=== PATIENT | female | born 1950 | race Caucasian/White ===

== ENCOUNTER 2019-08-21 17:41 | Observation (INO) ==
[2019-08-21] MEDS ORDERED: Isovue-370 500 ML BOTTLE IVP ONE (18:11)
[2019-08-21 18:57] LABS: Basophils # 0.1 K/mcL (0.0-0.2); Basophils % 0.7 %; Eosinophils # 0.2 K/mcL (0.0-0.6); Eosinophils % 1.8 %; Hemoglobin 14.5 g/dL (11.5-15.4); Immature Granulocytes % 0.4 % (0-4); Lymphocytes # 1.4 K/mcL (0.6-4.6); Lymphocytes % 17.3 %; Mean Corpuscular Hemoglobin 32.2 pg (28.0-33.3); Mean Corpuscular Volume 97.6 fL (83.0-100.0); Mean Platelet Volume 10.7 fL (9.4-12.4); Monocytes # 1.1 K/mcL (0.0-1.3); Monocytes % 12.9 %; Neutrophils # 5.5 K/mcL (1.6-8.9); Platelet Count 218 K/mcL (140-400); Red Blood Count 4.51 M/mcL (3.82-4.97); Red Cell Distribution Width 12.8 % (11.5-14.5); Segmented Neutrophils % 66.9 %; White Blood Count 8.3 K/mcL (4.3-11.1)
[2019-08-21 19:10] LABS: Bacteria,Urine Few per hpf (None-Few); Bilirubin,Urine Negative (Negative); Blood,Urine Negative (Negative); Clarity,Urine Turbid (Clear); Color,Urine Yellow (Yellow); Glucose,Urine (UA) 70 mg/dL (Normal); Hyaline Casts,Urine Many per lpf (None Seen); Ketones,Urine 10 mg/dL (Negative); Leukocyte Esterase,Urine Moderate (Negative); Mucus,Urine Many per lpf (None-Few); Nitrite,Urine Negative (Negative); Protein,Urine 100 mg/dL (Neg-Trace); Specific Gravity,Urine > 1.030 (1.010-1.025); Squamous Epithelial Cell,Urine Moderate per hpf (None-Few)
[2019-08-21 19:17] LABS: Alanine Aminotransferase 32 Units/L (7-52); Albumin 4.3 g/dL (3.5-5.7); Albumin/Globulin Ratio 1.4 (1.1-2.2); Alkaline Phosphatase 52 Units/L (34-104); Aspartate Amino Transferase 19 Units/L (13-39); BUN/Creatinine Ratio 25 (6-26); Bilirubin,Direct 0.3 mg/dL (0.0-0.2); Bilirubin,Indirect 0.8 mg/dL (0.0-1.0); Bilirubin,Total 1.1 mg/dL (0.3-1.0); Blood Urea Nitrogen 17 mg/dL (8-23); Calcium 9.8 mg/dL (8.6-10.3); Carbon Dioxide 26 mEq/L (23-29); Chloride 99 mEq/L (98-107); Glucose 231 mg/dL (70-105); Lipase 8 Units/L (11-82); Osmolality,Calculated 287 (280-300); Potassium 3.9 mEq/L (3.5-5.1); Sodium 134 mEq/L (136-145); Total Protein 7.3 g/dL (6.4-8.9); eGFR For African Americans > 60 (> 60); eGFR For Non-African Americans > 60 (> 60)
[2019-08-21] MEDS ORDERED: cefTRIAXone 1,000 MG in Water for inj. (sterile) 10 ML IVP ONE (20:59)
[2019-08-21] MEDS ORDERED: Insulin DETEMIR 100 UNIT/ML X5UNITS SQ SCH (21:00)
[2019-08-21] MEDS ORDERED: Naloxone 0.4 MG/ML INJ IVP PRN (22:22)
[2019-08-21] MEDS ORDERED: Ondansetron 4 MG/2 ML VIAL IVP PRN (22:22)
[2019-08-21] MEDS: 0.9 % Sodium Chloride 1,000 ML IVC SCH (22:34)
[2019-08-21] MEDS ORDERED: *HR* Dextrose 50 % in Water (Vial) 50 ML VIAL IVP PRN (22:50)
[2019-08-21] MEDS ORDERED: D5% in Water 1,000 ML IVC PRN (22:50)
[2019-08-21] MEDS ORDERED: Dextrose Gel 15 GM/37.5 ML TUBE PO PRN ×2 (22:50)
[2019-08-21] MEDS: Morphine Sulfate 2 MG/ML SYRINGE IVP PRN (23:02)
[2019-08-21] MEDS: traZODone 50 MG TABLET PO SCH (23:06)
[2019-08-22] MEDS: Morphine Sulfate 2 MG/ML SYRINGE IVP PRN ×2 (03:28→09:35)
[2019-08-22] MEDS: *HR* Heparin 5,000 UNIT/ML VIAL SQ SCH ×3 (05:02→19:41)
[2019-08-22 05:05] LABS: BUN/Creatinine Ratio 28 (6-26); Blood Urea Nitrogen 16 mg/dL (8-23); Calcium 8.9 mg/dL (8.6-10.3); Carbon Dioxide 26 mEq/L (23-29); Chloride 101 mEq/L (98-107); Chol/HDL Ratio 3.2 (0-4.9); Cholesterol 103 mg/dL (< 200); Glucose 193 mg/dL (70-105); HDL Cholesterol 32 mg/dL (40-59); LDL Cholesterol,Calculated 48 mg/dL (< 100); Magnesium 1.5 mg/dL (1.6-2.6); Osmolality,Calculated 284 (280-300); Phosphorous 3.4 mg/dL (2.7-4.5); Potassium 3.7 mEq/L (3.5-5.1); Sodium 134 mEq/L (136-145); Triglycerides 114 mg/dL (< 150); eGFR For African Americans > 60 (> 60); eGFR For Non-African Americans > 60 (> 60)
[2019-08-22 05:25] LABS: INR 1.2; Prothrombin Time 13.6 Seconds (9.4-12.1)
[2019-08-22] MEDS ORDERED: *HR* LORazepam 2 MG/ML VIAL IVP ONE (07:54)
[2019-08-22] MEDS: Insulin LISPRO 300 UNITS/3 ML VIAL SQ SCH ×3 (08:10→16:46)
[2019-08-22] MEDS: BuPROPion XL (24 HR) 150 MG TABLET PO SCH (08:10)
[2019-08-22] MEDS ORDERED: cefTRIAXone 1,000 MG in 0.9 % Sodium Chloride Mini Bag 100 ML IVPB SCH (09:00)
[2019-08-22] MEDS: 0.9 % Sodium Chloride 1,000 ML IVC SCH ×2 (09:28→19:39)
[2019-08-22] MEDS: lisinopriL 20 MG TABLET PO SCH (15:11)
[2019-08-22] MEDS: cefTRIAXone 1,000 MG in Water for inj. (sterile) 10 ML IVP SCH (19:39)
[2019-08-22] MEDS: Insulin DETEMIR 100 UNIT/ML X5UNITS SQ SCH (19:41)
[2019-08-22] MEDS: traZODone 50 MG TABLET PO SCH (19:41)
[2019-08-23 01:12] LABS: Hematocrit 38.9 % (35.3-44.9); Hemoglobin 12.8 g/dL (11.5-15.4); Mean Corpuscular HGB Conc 32.9 g/dL (31.6-35.5); Mean Corpuscular Hemoglobin 31.8 pg (28.0-33.3); Mean Corpuscular Volume 96.5 fL (83.0-100.0); Mean Platelet Volume 10.5 fL (9.4-12.4); Platelet Count 173 K/mcL (140-400); Red Blood Count 4.03 M/mcL (3.82-4.97); Red Cell Distribution Width 12.9 % (11.5-14.5); White Blood Count 5.3 K/mcL (4.3-11.1)
[2019-08-23 01:31] LABS: BUN/Creatinine Ratio 22 (6-26); Blood Urea Nitrogen 10 mg/dL (8-23); Calcium 8.2 mg/dL (8.6-10.3); Carbon Dioxide 26 mEq/L (23-29); Chloride 105 mEq/L (98-107); Glucose 112 mg/dL (70-105); Osmolality,Calculated 286 (280-300); Potassium 3.3 mEq/L (3.5-5.1); Sodium 138 mEq/L (136-145); eGFR For African Americans > 60 (> 60); eGFR For Non-African Americans > 60 (> 60)
[2019-08-23] MEDS: Morphine Sulfate 2 MG/ML SYRINGE IVP PRN (03:23)
[2019-08-23] MEDS: 0.9 % Sodium Chloride 1,000 ML IVC SCH ×3 (03:24→23:30)
[2019-08-23] MEDS: *HR* Heparin 5,000 UNIT/ML VIAL SQ SCH ×3 (05:15→21:55)
[2019-08-23] MEDS: Insulin LISPRO 300 UNITS/3 ML VIAL SQ SCH ×3 (07:35→17:10)
[2019-08-23] MEDS: BuPROPion XL (24 HR) 150 MG TABLET PO SCH (08:38)
[2019-08-23] MEDS: lisinopriL 20 MG TABLET PO SCH (08:38)
[2019-08-23] MEDS: traZODone 50 MG TABLET PO SCH (21:54)
[2019-08-23] MEDS: cefTRIAXone 1,000 MG in Water for inj. (sterile) 10 ML IVP SCH (21:54)
[2019-08-23] MEDS: Insulin DETEMIR 100 UNIT/ML X5UNITS SQ SCH (22:02)
[2019-08-24] MEDS: *HR* Heparin 5,000 UNIT/ML VIAL SQ SCH ×3 (05:55→20:34)
[2019-08-24 07:11] LABS: Hematocrit 38.8 % (35.3-44.9); Hemoglobin 12.6 g/dL (11.5-15.4); Mean Corpuscular HGB Conc 32.5 g/dL (31.6-35.5); Mean Corpuscular Volume 95.6 fL (83.0-100.0); Mean Platelet Volume 10.8 fL (9.4-12.4); Platelet Count 183 K/mcL (140-400); Red Blood Count 4.06 M/mcL (3.82-4.97); Red Cell Distribution Width 12.6 % (11.5-14.5); White Blood Count 5.8 K/mcL (4.3-11.1)
[2019-08-24 07:28] LABS: BUN/Creatinine Ratio 9 (6-26); Blood Urea Nitrogen 4 mg/dL (8-23); Calcium 8.1 mg/dL (8.6-10.3); Carbon Dioxide 25 mEq/L (23-29); Chloride 105 mEq/L (98-107); Glucose 131 mg/dL (70-105); Osmolality,Calculated 285 (280-300); Potassium 3.1 mEq/L (3.5-5.1); Sodium 138 mEq/L (136-145); eGFR For African Americans > 60 (> 60); eGFR For Non-African Americans > 60 (> 60)
[2019-08-24] MEDS: BuPROPion XL (24 HR) 150 MG TABLET PO SCH (07:50)
[2019-08-24] MEDS: lisinopriL 20 MG TABLET PO SCH (07:50)
[2019-08-24] MEDS: Insulin LISPRO 300 UNITS/3 ML VIAL SQ SCH ×3 (08:45→16:54)
[2019-08-24] MEDS: 0.9 % Sodium Chloride 1,000 ML IVC SCH (09:26)
[2019-08-24] MEDS: polyethylene glycoL 3350 17 GM POWD.PACK PO SCH (09:27)
[2019-08-24] MEDS: traZODone 50 MG TABLET PO SCH (20:34)
[2019-08-24] MEDS: cefTRIAXone 1,000 MG in Water for inj. (sterile) 10 ML IVP SCH (20:34)
[2019-08-24] MEDS: Insulin DETEMIR 100 UNIT/ML X5UNITS SQ SCH (20:34)
[2019-08-25] MEDS: *HR* Heparin 5,000 UNIT/ML VIAL SQ SCH (06:18)
[2019-08-25] MEDS: polyethylene glycoL 3350 17 GM POWD.PACK PO SCH (08:14)
[2019-08-25] MEDS: lisinopriL 20 MG TABLET PO SCH (08:14)
[2019-08-25] MEDS: BuPROPion XL (24 HR) 150 MG TABLET PO SCH (08:14)
[2019-08-25 08:16] LABS: Basophils # 0.1 K/mcL (0.0-0.2); Basophils % 1.3 %; Eosinophils # 0.2 K/mcL (0.0-0.6); Eosinophils % 2.7 %; Hematocrit 39.3 % (35.3-44.9); Hemoglobin 12.9 g/dL (11.5-15.4); Immature Granulocytes % 0.5 % (0-4); Lymphocytes # 1.6 K/mcL (0.6-4.6); Lymphocytes % 27.2 %; Mean Corpuscular HGB Conc 32.8 g/dL (31.6-35.5); Mean Corpuscular Hemoglobin 31.2 pg (28.0-33.3); Mean Corpuscular Volume 94.9 fL (83.0-100.0); Mean Platelet Volume 10.4 fL (9.4-12.4); Monocytes # 0.6 K/mcL (0.0-1.3); Monocytes % 9.5 %; Neutrophils # 3.5 K/mcL (1.6-8.9); Platelet Count 191 K/mcL (140-400); Red Blood Count 4.14 M/mcL (3.82-4.97); Red Cell Distribution Width 12.5 % (11.5-14.5); Segmented Neutrophils % 58.8 %
[2019-08-25] MEDS: Insulin LISPRO 300 UNITS/3 ML VIAL SQ SCH (08:18)
[2019-08-25 08:37] LABS: BUN/Creatinine Ratio 8 (6-26); Blood Urea Nitrogen 4 mg/dL (8-23); Calcium 8.7 mg/dL (8.6-10.3); Carbon Dioxide 28 mEq/L (23-29); Chloride 102 mEq/L (98-107); Glucose 132 mg/dL (70-105); Osmolality,Calculated 285 (280-300); Potassium 3.2 mEq/L (3.5-5.1); Sodium 138 mEq/L (136-145); eGFR For African Americans > 60 (> 60); eGFR For Non-African Americans > 60 (> 60)
[2019-08-25 10:11] LABS: Magnesium 1.6 mg/dL (1.6-2.6)
[2019-08-25 10:47] VITALS: BP 172/80
== END 2019-08-25 12:22 | disposition home or self-care (01) ==
LOC: EMEROOARM 17:41 → 3ANU 17:41 → SUATTDRO 21:18 → 3ANU 21:42
PROVIDERS: ADMIT Internal Medicine; ATTEND Student in an Organized Health Care Education/Training Program

== ENCOUNTER 2020-08-25 05:29 | Inpatient (IN) ==
[2020-08-25] MEDS ORDERED: Isovue-370 500 ML BOTTLE IVP ONE ×2 (06:01→06:02)
[2020-08-25] MEDS ORDERED: Ondansetron 4 MG/2 ML VIAL IVP ONE (06:02)
[2020-08-25] MEDS ORDERED: Morphine Sulfate 2 MG/ML SYRINGE IVP ONE ×2 (06:02→11:17)
[2020-08-25 06:33] LABS: Basophils % 0.5 %; Eosinophils # 0.1 K/mcL (0.0-0.6); Eosinophils % 1.3 %; Hematocrit 44.5 % (35.3-44.9); Hemoglobin 14.5 g/dL (11.5-15.4); Immature Granulocytes % 0.2 % (0-4); Lymphocytes # 0.9 K/mcL (0.6-4.6); Mean Corpuscular HGB Conc 32.6 g/dL (31.6-35.5); Mean Corpuscular Hemoglobin 31.5 pg (28.0-33.3); Mean Corpuscular Volume 96.5 fL (83.0-100.0); Monocytes % 13.8 %; Neutrophils # 4.3 K/mcL (1.6-8.9); Platelet Count 202 K/mcL (140-400); Red Blood Count 4.61 M/mcL (3.82-4.97); Red Cell Distribution Width 13.2 % (11.5-14.5); Segmented Neutrophils % 70.2 %; White Blood Count 6.1 K/mcL (4.3-11.1)
[2020-08-25 06:38] LABS: Monocytes # 0.8 K/mcL (0.0-1.3)
[2020-08-25 06:50] LABS: Alanine Aminotransferase 20 Units/L (7-52); Albumin 4.3 g/dL (3.5-5.7); Albumin/Globulin Ratio 1.3 (1.1-2.2); Alkaline Phosphatase 48 Units/L (34-104); Aspartate Amino Transferase 15 Units/L (13-39); BUN/Creatinine Ratio 42 (6-26); Bilirubin,Direct 0.2 mg/dL (0.0-0.2); Bilirubin,Indirect 1.2 mg/dL (0.0-1.0); Bilirubin,Total 1.4 mg/dL (0.3-1.0); Blood Urea Nitrogen 25 mg/dL (8-23); Calcium 8.9 mg/dL (8.6-10.3); Carbon Dioxide 25 mEq/L (23-29); Chloride 97 mEq/L (98-107); Globulin 3.2 g/dL (2.4-3.5); Glucose 286 mg/dL (70-105); Lipase 4 Units/L (11-82); Osmolality,Calculated 287 (280-300); Potassium 4.1 mEq/L (3.5-5.1); Sodium 131 mEq/L (136-145); Total Protein 7.5 g/dL (6.4-8.9); eGFR For African Americans > 60 (> 60); eGFR For Non-African Americans > 60 (> 60)
[2020-08-25 06:55] LABS: Bilirubin,Urine Negative (Negative); Blood,Urine Negative (Negative); Clarity,Urine Clear (Clear); Color,Urine Yellow (Yellow); Glucose,Urine (UA) 500 mg/dL (Normal); Ketones,Urine 40 mg/dL (Negative); Leukocyte Esterase,Urine Trace (Negative); Mucus,Urine Few per lpf (None-Few); Nitrite,Urine Negative (Negative); Protein,Urine 50 mg/dL (Neg-Trace); Specific Gravity,Urine > 1.030 (1.010-1.025); Squamous Epithelial Cell,Urine Few per hpf (None-Few); Urobilinogen,Urine Normal (Normal); WBC,Urine 0-3 per hpf (0-3)
[2020-08-25 07:17] LABS: Platelet Estimate Normal (Normal)
[2020-08-25] MEDS: 0.9 % Sodium Chloride 1,000 ML IVC SCH ×6 (10:41→19:52)
[2020-08-25] MEDS ORDERED: Naloxone 0.4 MG/ML INJ IVP PRN (10:47)
[2020-08-25] MEDS ORDERED: *HR* Dextrose 50 % in Water (Vial) 50 ML VIAL IVP PRN (11:08)
[2020-08-25] MEDS ORDERED: D5% in Water 1,000 ML IVC PRN (11:08)
[2020-08-25] MEDS ORDERED: Dextrose Gel 15 GM/37.5 ML TUBE PO PRN ×2 (11:08)
[2020-08-25] MEDS ORDERED: *HR* LORazepam 2 MG/ML VIAL IVP ONE (11:17)
[2020-08-25] MEDS ORDERED: Morphine Sulfate Oral CONC 10 MG/0.5 ML ORAL.SYG SL PRN (11:18)
[2020-08-25] MEDS: Insulin LISPRO 300 UNITS/3 ML VIAL SUBQ SCH ×2 (13:35→17:15)
[2020-08-25] MEDS ORDERED: Acetaminophen IV 500 MG/50 ML BAG IVPB ONE (21:00)
[2020-08-26] MEDS: Insulin LISPRO 300 UNITS/3 ML VIAL SUBQ SCH ×5 (00:44→22:38)
[2020-08-26] MEDS: 0.9 % Sodium Chloride 1,000 ML IVC SCH ×3 (04:39→08:33)
[2020-08-26 06:43] LABS: Hematocrit 39.4 % (35.3-44.9); Hemoglobin 13.1 g/dL (11.5-15.4); Mean Corpuscular HGB Conc 33.2 g/dL (31.6-35.5); Mean Corpuscular Hemoglobin 32.6 pg (28.0-33.3); Mean Platelet Volume 11.1 fL (9.4-12.4); Platelet Count 196 K/mcL (140-400); Red Blood Count 4.02 M/mcL (3.82-4.97); Red Cell Distribution Width 13.4 % (11.5-14.5); White Blood Count 7.7 K/mcL (4.3-11.1)
[2020-08-26] MEDS ORDERED: *HR* Propofol 200 MG/20 ML VIAL IVP ONE (07:08)
[2020-08-26] MEDS ORDERED: Ondansetron 4 MG/2 ML VIAL ONE (07:08)
[2020-08-26] MEDS ORDERED: *HR* Rocuronium Bromide 50 MG/5 ML VIAL ONE (07:08)
[2020-08-26] MEDS ORDERED: *HR* Succinylcholine 200 MG/10 ML VIAL IVP ONE (07:08)
[2020-08-26] MEDS ORDERED: Lidocaine -MPF 2% 2 ML VIAL ONE (07:08)
[2020-08-26] MEDS ORDERED: *HR* FentaNYL (PF) 100 MCG/2 ML VIAL ONE (07:08)
[2020-08-26 07:10] LABS: Alanine Aminotransferase 14 Units/L (7-52); Albumin 3.6 g/dL (3.5-5.7); Albumin/Globulin Ratio 1.4 (1.1-2.2); Alkaline Phosphatase 39 Units/L (34-104); Aspartate Amino Transferase 10 Units/L (13-39); BUN/Creatinine Ratio 26 (6-26); Bilirubin,Total 0.9 mg/dL (0.3-1.0); Blood Urea Nitrogen 14 mg/dL (8-23); Calcium 7.6 mg/dL (8.6-10.3); Carbon Dioxide 25 mEq/L (23-29); Chloride 104 mEq/L (98-107); Globulin 2.5 g/dL (2.4-3.5); Glucose 171 mg/dL (70-105); Magnesium 1.7 mg/dL (1.6-2.6); Osmolality,Calculated 287 (280-300); Phosphorous 1.7 mg/dL (2.7-4.5); Potassium 3.7 mEq/L (3.5-5.1); Sodium 136 mEq/L (136-145); Total Protein 6.1 g/dL (6.4-8.9); eGFR For African Americans > 60 (> 60); eGFR For Non-African Americans > 60 (> 60)
[2020-08-26] MEDS ORDERED: *HR* Magnesium Sulfate 1 GM/2 ML VIAL ONE (07:19)
[2020-08-26] MEDS ORDERED: *HR* Vasopressin 20 UNIT/ML VIAL ONE (07:27)
[2020-08-26] MEDS ORDERED: ROPIVACAINE/PF/NS 0.25% 1 EACH SYRINGE INTRAART ONE (07:45)
[2020-08-26] MEDS ORDERED: Ondansetron ODT 4 MG TAB.RAPDIS SL ONE (10:10)
[2020-08-26] MEDS ORDERED: Ondansetron ODT 4 MG TAB.RAPDIS SL PRN (10:48)
[2020-08-26] MEDS ORDERED: *HR* Heparin 5,000 UNIT/ML VIAL SQ SCH (11:45)
[2020-08-26] MEDS ORDERED: Potassium Phosphate 44 MEQ in 0.9 % Sodium Chloride 250 ML IVPB ONE (14:11)
[2020-08-26] MEDS ORDERED: Chloraseptic Spray 177 ML BOTTLE MM PRN (15:18)
[2020-08-26] MEDS ORDERED: 0.9 % Sodium Chloride 1,000 ML IVC SCH (17:00)
[2020-08-26] MEDS: *HR* Heparin 5,000 UNIT/ML VIAL SQ SCH (17:45)
[2020-08-26] MEDS: Melatonin 3 MG TABLET PO PRN (22:41)
[2020-08-27 03:06] LABS: Hematocrit 37.9 % (35.3-44.9); Mean Corpuscular HGB Conc 31.7 g/dL (31.6-35.5); Mean Corpuscular Hemoglobin 31.3 pg (28.0-33.3); Mean Corpuscular Volume 98.7 fL (83.0-100.0); Mean Platelet Volume 10.9 fL (9.4-12.4); Platelet Count 178 K/mcL (140-400); Red Blood Count 3.84 M/mcL (3.82-4.97); Red Cell Distribution Width 13.1 % (11.5-14.5); White Blood Count 8.4 K/mcL (4.3-11.1)
[2020-08-27 03:17] LABS: BUN/Creatinine Ratio 24 (6-26); Blood Urea Nitrogen 9 mg/dL (8-23); Calcium 7.5 mg/dL (8.6-10.3); Carbon Dioxide 23 mEq/L (23-29); Chloride 105 mEq/L (98-107); Glucose 118 mg/dL (70-105); Osmolality,Calculated 282 (280-300); Potassium 3.5 mEq/L (3.5-5.1); Sodium 136 mEq/L (136-145); eGFR For African Americans > 60 (> 60); eGFR For Non-African Americans > 60 (> 60)
[2020-08-27] MEDS: *HR* Heparin 5,000 UNIT/ML VIAL SQ SCH ×2 (06:16→17:47)
[2020-08-27] MEDS: Insulin LISPRO 300 UNITS/3 ML VIAL SUBQ SCH ×4 (08:35→21:09)
[2020-08-27] MEDS: lisinopriL 20 MG TABLET PO SCH (19:02)
[2020-08-27] MEDS ORDERED: traZODone 50 MG TABLET PO SCH (21:00)
[2020-08-27] MEDS: Melatonin 3 MG TABLET PO PRN (23:18)
[2020-08-28] MEDS: *HR* Heparin 5,000 UNIT/ML VIAL SQ SCH (05:43)
[2020-08-28 07:38] VITALS: BP 171/74
[2020-08-28] MEDS: lisinopriL 20 MG TABLET PO SCH (08:44)
[2020-08-28] MEDS: Insulin LISPRO 300 UNITS/3 ML VIAL SUBQ SCH (08:44)
== END 2020-08-28 10:42 | disposition home or self-care (01) | DRG 389 ==
LOC: EMEROOARM 05:29 → CDU 05:29 → SUATTDRO 11:42 → CDU 13:00 → 3ANU 08-26 03:16
PROVIDERS: ADMIT Internal Medicine; ATTEND Internal Medicine

== ENCOUNTER 2020-12-16 06:26 | Inpatient (IN) ==
[2020-12-16] MEDS ORDERED: CeFAZolin Syr 2,000MG/20 ML 2,000 MG/20 ML SYRINGE IVPB ONE (06:47)
[2020-12-16] MEDS ORDERED: Lidocaine HCL 4 ML Topical Solution (Laryng-O-Jet Kit Sterile Pak) TP ONE (06:48)
[2020-12-16] MEDS ORDERED: *HR* Propofol 200 MG/20 ML VIAL IVP ONE (06:56)
[2020-12-16] MEDS ORDERED: Lidocaine -MPF 2% 5 ML VIAL ONE (06:57)
[2020-12-16] MEDS ORDERED: *HR* Rocuronium Bromide 50 MG/5 ML VIAL ONE ×2 (06:57→09:28)
[2020-12-16] MEDS ORDERED: *HR* Succinylcholine 200 MG/10 ML VIAL IVP ONE (06:57)
[2020-12-16] MEDS ORDERED: Ringers Solution, Lactated 1,000 ML IVC SCH (07:00)
[2020-12-16] MEDS ORDERED: Ondansetron 4 MG/2 ML VIAL ONE (07:06)
[2020-12-16] MEDS ORDERED: *HR* FentaNYL (PF) 100 MCG/2 ML VIAL ONE (07:08)
[2020-12-16] MEDS ORDERED: Acetaminophen IV 1,000 MG/100 ML BAG IVPB ONE ×2 (07:14→16:40)
[2020-12-16] MEDS ORDERED: Insulin Regular, Human 100 UNIT/ML SUBQ ONE ×2 (07:15→13:12)
[2020-12-16] MEDS ORDERED: *HR* Remifentanil 1 MG VIAL IVP ONE ×2 (07:25→10:38)
[2020-12-16] MEDS ORDERED: *HR* Phenylephrine 10 MG/ML VIAL ONE (07:28)
[2020-12-16] MEDS ORDERED: Bupivacaine/EPI 1:200k 0.25% 50 ML VIAL ONE (07:34)
[2020-12-16] MEDS ORDERED: *HR* Vasopressin 20 UNIT/ML VIAL ONE (07:47)
[2020-12-16] MEDS ORDERED: Dexmedetomidine HCl 400 MCG/100 ML MLS IVC ONE (10:06)
[2020-12-16] MEDS ORDERED: Sugammadex Sodium 200 MG/2 ML VIAL IV ONE (10:47)
[2020-12-16] MEDS ORDERED: *HR* HYDROMORPHONE 2 MG/ML VIAL ONE (11:59)
[2020-12-16] MEDS: *HR* FentaNYL (PF) 100 MCG/2 ML VIAL IVP PRN ×2 (12:43→12:53)
[2020-12-16] MEDS ORDERED: 0.9 % Sodium Chloride w KCl 20 MEQ/1,000 ML MLS IVC SCH (12:45)
[2020-12-16] MEDS ORDERED: *HR* FentaNYL PATCH 12 MCG PATCH TD SCH ×2 (13:00→17:00)
[2020-12-16] MEDS ORDERED: *HR* HYDROmorphone (PF) 1 MG/ML SYRINGE ONE (13:08)
[2020-12-16] MEDS: *HR* HYDROmorphone 2 MG/ML SYRINGE IVP PRN ×3 (13:08→13:52)
[2020-12-16] MEDS ORDERED: *HR* FentaNYL (PF) 100 MCG/2 ML VIAL IVP PRN (16:40)
[2020-12-16] MEDS ORDERED: *HR* HYDROmorphone 2 MG/ML SYRINGE IVP PRN (16:40)
[2020-12-16] MEDS: Ringers Solution, Lactated 1,000 ML IVC SCH (17:50)
[2020-12-16] MEDS: 0.9 % Sodium Chloride w KCl 20 MEQ/1,000 ML MLS IVC SCH (17:56)
[2020-12-16] MEDS: Ketorolac 15 MG/ML VIAL IVP SCH (17:56)
[2020-12-16] MEDS ORDERED: Acetaminophen IV 1,000 MG/100 ML BAG IVPB SCH (18:00)
[2020-12-16] MEDS ORDERED: Ketorolac 15 MG/ML VIAL IVP SCH (18:00)
[2020-12-16] MEDS: traZODone 50 MG TABLET PO SCH (20:27)
[2020-12-16] MEDS ORDERED: traZODone 50 MG TABLET PO SCH (21:00)
[2020-12-17] MEDS: Ketorolac 15 MG/ML VIAL IVP SCH ×4 (00:13→17:53)
[2020-12-17] MEDS: Acetaminophen IV 1,000 MG/100 ML BAG IVPB SCH ×2 (00:21→06:08)
[2020-12-17 05:13] LABS: Basophils # 0.1 K/mcL (0.0-0.2); Basophils % 0.7 %; Eosinophils # 0.3 K/mcL (0.0-0.6); Hematocrit 36.5 % (35.3-44.9); Hemoglobin 11.9 g/dL (11.5-15.4); Immature Granulocytes % 0.5 % (0-4); Lymphocytes # 0.9 K/mcL (0.6-4.6); Lymphocytes % 6.6 %; Mean Corpuscular HGB Conc 32.6 g/dL (31.6-35.5); Mean Corpuscular Hemoglobin 32.3 pg (28.0-33.3); Mean Corpuscular Volume 99.2 fL (83.0-100.0); Mean Platelet Volume 11.3 fL (9.4-12.4); Monocytes # 1.2 K/mcL (0.0-1.3); Monocytes % 9.3 %; Neutrophils # 10.8 K/mcL (1.6-8.9); Platelet Count 191 K/mcL (140-400); Red Blood Count 3.68 M/mcL (3.82-4.97); Red Cell Distribution Width 13.6 % (11.5-14.5); Segmented Neutrophils % 80.9 %; White Blood Count 13.3 K/mcL (4.3-11.1)
[2020-12-17 05:33] LABS: BUN/Creatinine Ratio 34 (6-26); Blood Urea Nitrogen 22 mg/dL (8-23); Carbon Dioxide 24 mEq/L (23-29); Chloride 106 mEq/L (98-107); Glucose 210 mg/dL (70-105); Magnesium 1.5 mg/dL (1.6-2.6); Osmolality,Calculated 294 (280-300); Phosphorous 3.5 mg/dL (2.7-4.5); Potassium 4.6 mEq/L (3.5-5.1); Sodium 137 mEq/L (136-145); eGFR For African Americans > 60 (> 60); eGFR For Non-African Americans > 60 (> 60)
[2020-12-17] MEDS: 0.9 % Sodium Chloride w KCl 20 MEQ/1,000 ML MLS IVC SCH ×2 (06:08→17:54)
[2020-12-17] MEDS ORDERED: lisinopriL 20 MG TABLET PO SCH (09:00)
[2020-12-17] MEDS ORDERED: BuPROPion XL (24 HR) 150 MG TABLET PO SCH (09:00)
[2020-12-17] MEDS: lisinopriL 20 MG TABLET PO SCH (09:12)
[2020-12-17] MEDS: BuPROPion XL (24 HR) 150 MG TABLET PO SCH (09:12)
[2020-12-17] MEDS ORDERED: D5% in Water 1,000 ML IVC PRN (11:35)
[2020-12-17] MEDS ORDERED: Dextrose Gel 15 GM/37.5 ML TUBE PO PRN ×2 (11:35)
[2020-12-17] MEDS ORDERED: *HR* Dextrose 50 % in Water (Syg) 50 ML SYRINGE IVP PRN (11:35)
[2020-12-17] MEDS: Insulin LISPRO 300 UNITS/3 ML VIAL SUBQ SCH ×2 (13:02→17:53)
[2020-12-17] MEDS: Ringers Solution, Lactated 1,000 ML IVC SCH (17:54)
[2020-12-17] MEDS: traZODone 50 MG TABLET PO SCH (20:46)
[2020-12-18] MEDS: Ketorolac 15 MG/ML VIAL IVP SCH ×4 (00:30→18:14)
[2020-12-18] MEDS: Insulin LISPRO 300 UNITS/3 ML VIAL SUBQ SCH ×4 (00:36→17:43)
[2020-12-18] MEDS: lisinopriL 20 MG TABLET PO SCH (09:42)
[2020-12-18] MEDS: 0.9 % Sodium Chloride w KCl 20 MEQ/1,000 ML MLS IVC SCH (09:42)
[2020-12-18] MEDS: BuPROPion XL (24 HR) 150 MG TABLET PO SCH (09:42)
[2020-12-18] MEDS: Ringers Solution, Lactated 1,000 ML IVC SCH (17:09)
[2020-12-18] MEDS: traZODone 50 MG TABLET PO SCH (20:44)
[2020-12-19] MEDS: Insulin LISPRO 300 UNITS/3 ML VIAL SUBQ SCH ×5 (01:21→21:31)
[2020-12-19] MEDS: *HR* HYDROcodone/Acet 5/325 mg TABLET PO PRN ×3 (02:38→21:06)
[2020-12-19] MEDS: Ketorolac 15 MG/ML VIAL IVP SCH ×5 (02:45→23:21)
[2020-12-19] MEDS: 0.9 % Sodium Chloride w KCl 20 MEQ/1,000 ML MLS IVC SCH ×2 (07:46→10:23)
[2020-12-19] MEDS: lisinopriL 20 MG TABLET PO SCH (10:21)
[2020-12-19] MEDS: BuPROPion XL (24 HR) 150 MG TABLET PO SCH (10:21)
[2020-12-19] MEDS: Ringers Solution, Lactated 1,000 ML IVC SCH (15:06)
[2020-12-19] MEDS: *HR* Metoprolol 5 MG/5 ML VIAL IVP PRN ×2 (15:49→23:21)
[2020-12-19] MEDS: traZODone 50 MG TABLET PO SCH (21:05)
[2020-12-20] MEDS: Ketorolac 15 MG/ML VIAL IVP SCH ×3 (05:51→18:18)
[2020-12-20] MEDS: Insulin LISPRO 300 UNITS/3 ML VIAL SUBQ SCH ×4 (09:15→21:04)
[2020-12-20] MEDS: lisinopriL 20 MG TABLET PO SCH (09:15)
[2020-12-20] MEDS: BuPROPion XL (24 HR) 150 MG TABLET PO SCH (09:15)
[2020-12-20] MEDS: 0.9 % Sodium Chloride w KCl 20 MEQ/1,000 ML MLS IVC SCH (09:34)
[2020-12-20] MEDS: *HR* Metoprolol 5 MG/5 ML VIAL IVP PRN ×2 (09:40→21:03)
[2020-12-20] MEDS: Ondansetron ODT 4 MG TAB.RAPDIS SL PRN ×3 (13:14→22:29)
[2020-12-20] MEDS: *HR* HYDROcodone/Acet 5/325 mg TABLET PO PRN (14:59)
[2020-12-20] MEDS: traZODone 50 MG TABLET PO SCH (21:03)
[2020-12-21] MEDS: Ketorolac 15 MG/ML VIAL IVP SCH ×2 (00:46→05:23)
[2020-12-21] MEDS: Pantoprazole 40 MG VIAL IVP SCH ×2 (00:47→05:22)
[2020-12-21] MEDS: Ringers Solution, Lactated 1,000 ML IVC SCH (07:16)
[2020-12-21] MEDS: 0.9 % Sodium Chloride w KCl 20 MEQ/1,000 ML MLS IVC SCH (07:17)
[2020-12-21] MEDS: BuPROPion XL (24 HR) 150 MG TABLET PO SCH (08:50)
[2020-12-21] MEDS: lisinopriL 20 MG TABLET PO SCH (08:50)
[2020-12-21] MEDS: Insulin LISPRO 300 UNITS/3 ML VIAL SUBQ SCH ×3 (08:51→16:36)
[2020-12-21] MEDS ORDERED: *HR* SitaGLIPtin 100 MG TABLET PO SCH (09:00)
[2020-12-21] MEDS ORDERED: *HR* Metformin 500 MG TABLET PO SCH (09:00)
[2020-12-21] MEDS ORDERED: LUTEIN 20 MG PO SCH (09:00)
[2020-12-21 09:21] LABS: Basophils % 0.7 %; Eosinophils % 0.4 %; Hematocrit 38.1 % (35.3-44.9); Hemoglobin 12.1 g/dL (11.5-15.4); Lymphocytes % 14.9 %; Mean Corpuscular HGB Conc 31.8 g/dL (31.6-35.5); Mean Corpuscular Hemoglobin 31.8 pg (28.0-33.3); Mean Corpuscular Volume 100.3 fL (83.0-100.0); Mean Platelet Volume 9.8 fL (9.4-12.4); Monocytes % 12.2 %; Platelet Count 335 K/mcL (140-400); Red Cell Distribution Width 13.4 % (11.5-14.5); Segmented Neutrophils % 70.8 %; White Blood Count 7.2 K/mcL (4.3-11.1)
[2020-12-21 09:22] LABS: Basophils # 0.1 K/mcL (0.0-0.2); Lymphocytes # 1.1 K/mcL (0.6-4.6); Monocytes # 0.9 K/mcL (0.0-1.3); Neutrophils # 5.1 K/mcL (1.6-8.9); Nucleated Red Blood Cells 0.3 /100 WBC (0)
[2020-12-21 09:44] LABS: BUN/Creatinine Ratio 38 (6-26); Blood Urea Nitrogen 20 mg/dL (8-23); Calcium 8.3 mg/dL (8.6-10.3); Carbon Dioxide 21 mEq/L (23-29); Chloride 102 mEq/L (98-107); Glucose 250 mg/dL (70-105); Magnesium 2.1 mg/dL (1.6-2.6); Osmolality,Calculated 289 (280-300); Potassium 4.8 mEq/L (3.5-5.1); Sodium 134 mEq/L (136-145); Troponin I < 0.03 ng/mL (< 0.04); eGFR For African Americans > 60 (> 60); eGFR For Non-African Americans > 60 (> 60)
[2020-12-21 09:46] LABS: Phosphorous 3.3 mg/dL (2.7-4.5)
[2020-12-21 10:43] VITALS: O2SAT 95
[2020-12-21] MEDS: Ondansetron ODT 4 MG TAB.RAPDIS SL PRN (15:06)
[2020-12-21 15:24] VITALS: BP 138/76; PULSE 122; TEMP 97.6
[2020-12-21] MEDS: *HR* HYDROcodone/Acet 5/325 mg TABLET PO PRN (16:36)
[2020-12-21] MEDS ORDERED: Insulin DETEMIR 100 UNIT/ML X5UNITS SUBQ SCH (21:00)
[2020-12-21] MEDS ORDERED: NON-FORMULARY MEDICATION 1 EACH EACH (Insulin Glargine [Lantus] 300 UNIT/3 ML Mls) SQ SCH (21:00)
== END 2020-12-21 16:55 | disposition home health service (06) | DRG 355 ==
LOC: SAMDAY 06:26 → 3ANU 14:33
PROVIDERS: ADMIT Surgery; ATTEND Surgery